=== PATIENT | male | born 1985 | race Caucasian/White ===

== ENCOUNTER 2017-03-25 20:32 | Emergency (ER) | payer SELFPAY ==
[2017-03-25 20:37] VITALS: BP 106/62
== END 2017-03-25 22:07 | disposition other institution (70) ==
LOC: ED 20:32
DX: Z02.89 Encounter for other administrative examinations (principal); S00.411A Abrasion of right ear, initial encounter; S00.81XA Abrasion of other part of head, initial encounter; X58.XXXA Exposure to other specified factors, initial encounter; Y93.89 Activity, other specified; Y99.8 Other external cause status; Y92.89 Other specified places as the place of occurrence of the external cause
CPT/HCPCS: 90715

== ENCOUNTER 2017-03-25 20:32 | Emergency (ER) | payer OTHER | END 2017-03-25 22:07 | disposition other institution (70) | LOC: ED 20:32 | DX: Z02.89 Encounter for other administrative examinations (principal); S00.411A Abrasion of right ear, initial encounter; S00.81XA Abrasion of other part of head, initial encounter; W50.0XXA Accidental hit or strike by another person, initial encounter; Y93.89 Activity, other specified; Y99.8 Other external cause status; Y92.89 Other specified places as the place of occurrence of the external cause ==